=== PATIENT | female | born 1970 | race Caucasian/White ===

== ENCOUNTER 2017-02-11 20:07 | Emergency (ER) | payer MEDICAID ==
[2017-02-11 20:07] VITALS: BMI 26.6
[2017-02-11 20:26] VITALS: BP 131/83; PULSE 67; RESP 20; TEMP 98.1; O2SAT 95
--- NOTE | 2017-02-11 22:34 | C.PDOC ---
History Of Present Illness Patient is a 46 year old female who presents to the ER with a complaint of right arm pain. Patient states she slipped on a wet floor at work and landed on her back but her back does not hurt. Patient notes the pain is all over her right arm. Denies any nausea, vomiting, or any other injury. Time Seen by Provider: 02/11/17 20:22 Chief Complaint (Nursing): Upper Extremity Problem/Injury History Per: Patient History/Exam Limitations: no limitations Onset/Duration Of Symptoms: Hrs Current Symptoms Are (Timing): Still Present Past Medical History Reviewed: Historical Data, Nursing Documentation, Vital Signs Vital Signs: Last Vital Signs Temp 98.1 F 02/11/17 20:24 Pulse 67 02/11/17 20:24 Resp 20 02/11/17 22:43 BP 131/83 02/11/17 20:24 Pulse Ox 95 02/11/17 23:33 - Medical History PMH: Anxiety, Asthma, Fractures (LEFT WRIST), HTN, Hyperlipidemia, Chronic Pain (neck pain) Surgical History: Tonsillectomy - [facility] Procedures ANESTH INJECT-SPIN CANAL (10/27/14) APPLICATION OF SPLINT (03/27/15) ETHMOIDECTOMY (08/07/15) INJECT STEROID (10/27/14) INTRANASAL ANTROTOMY (12/03/13) OTHER DIAGNOSTIC PROC ON NASAL SINUS (08/07/15) SPINAL CANAL INJECT NEC (10/27/14) TURBINECTOMY NEC (12/03/13) Family History: States: Unknown Family Hx - Social History Hx Tobacco Use: No Hx Alcohol Use: No Hx Substance Use: No - Immunization History Hx Tetanus Toxoid Vaccination: No Hx Influenza Vaccination: Yes Hx Pneumococcal Vaccination: No Review Of Systems Except As Marked, All Systems Reviewed And Found Negative. Constitutional: Negative for: Fever, Chills Cardiovascular: Negative for: Chest Pain, Palpitations Gastrointestinal: Negative for: Nausea, Vomiting Musculoskeletal: Positive for: Arm Pain (Right arm) Physical Exam - Physical Exam Appears: Well, Non-toxic Skin: Normal Color, Warm, Dry Oral Mucosa: Moist Neck: Normal, Supple Cardiovascular: Rhythm Regular Respiratory: Normal Breath Sounds, No Rales, No Rhonchi, No Wheezing Gastrointestinal/Abdominal: Soft, No Tenderness Extremity: Normal ROM, Tenderness (All over right arm) Neurological/Psych: Oriented x3, Normal Speech, Normal Cognition ED Course And Treatment O2 Sat by Pulse Oximetry: 95 (Room air) Pulse Ox Interpretation: Normal - CT Scan/US upper extremity Other Rad Studies (CT/US): Read By Radiologist, Radiology Report Reviewed CT/US Interpretation: EXAM: CT Right Upper Extremity Without Intravenous Contrast. CLINICAL HISTORY: 46 years old, female; Pain; Lower or forearm and upper arm and elbow and. hand and shoulder and wrist; Right; Additional info: Fall, entire upper extremity pain. TECHNIQUE: Axial computed tomography images of the right upper extremity without intravenous. contrast. This CT exam was performed using one or more of the following dose reduction. techniques: automated exposure control, adjustment of the mA and/or kV according to patient size,. and/or use of iterative reconstruction technique. Coronal and sagittal reformatted images were. created and reviewed. COMPARISON: No relevant prior studies available. FINDINGS: Bones/joints: Unremarkable. No acute fracture. No dislocation. Soft tissues: Unremarkable. IMPRESSION: Normal right upper extremity CT. Thank you for allowing us to participate in the care of your patient. Dictated and Authenticated by: Tom Trinh MD. 02/11/2017 10:27 PM Eastern Time ([place] & [place]) Progress Note: Due to the extent of the injury, radiologist was consulted for best way to order X-ray, a CT was recommended instead. CT was ordered and negative. Colten wrap to the hand and wrist and arm sling were applied by RN and checked by me. Patient was d/c home with [facility], [facility] Clinic follow up. Disposition - Disposition Referrals: Babs Mroataya DO [[facility]] - Disposition: HOME/ ROUTINE Disposition Time: 22:32 Condition: GOOD Additional Instructions: Follow up with PMD within 1-2 days. Return to [facility] if feel worse. Prescriptions: Ibuprofen [Motrin Tab] 600 mg PO Q8 #30 tab Instructions: Contusion in Adults (ED) - Clinical Impression Clinical Impression: Arm contusion - Scribe Statement The provider has reviewed the documentation as recorded by the Scribceasar Pineda All medical record entries made by the Scribe were at my direction and personally dictated by me. I have reviewed the chart and agree that the record accurately reflects my personal performance of the history, physical exam, medical decision making, and the department course for this patient. I have also personally directed, reviewed, and agree with the discharge instructions and disposition.
--- NOTE | 2017-02-12 11:18 | CT ---
PROCEDURE: CT of the right upper extremity HISTORY: fall, entire upper extremity pain COMPARISON: Comparison is made to the x-ray of the right shoulder dated 09/16/2016. TECHNIQUE: Axial and reformatted coronal and sagittal CT images of the right upper extremity was performed without IV contrast administration. This CT exam was performed using one or more of the following dose reduction techniques: Automated exposure control, adjustment of the mA and/or kv according to patient size, and/or use of iterative reconstruction technique. Radiation dose: Total exam DLP = 718.57 mGy-cm. FINDINGS: There is no CT evidence of acute fracture at the right upper extremity. There is no evidence of dislocation at the right shoulder right elbow or wrist noted in this exam. No evidence of fluid collection or hematoma at the right upper extremity. No CT evidence of significant joint effusion at the right upper extremity. IMPRESSION: No definite CT evidence of acute pathology at the right upper extremity noted in this study. If there is clinical concern for focal posttraumatic injury in the right upper extremity further assessment by MRI may be obtained. Preliminary report was submitted by [facility].
== END 2017-02-11 22:43 | disposition home or self-care (01) ==
LOC: C.ER 20:07
DX: S40.021A Contusion of right upper arm, initial encounter (principal); W01.0XXA Fall on same level from slipping, tripping and stumbling without subsequent striking against object, initial encounter; Y92.89 Other specified places as the place of occurrence of the external cause; Y99.0 Civilian activity done for income or pay